=== PATIENT | male | born 1965 | race Caucasian/White ===

== ENCOUNTER 2018-12-21 13:34 | Emergency (ER) | payer OTHER ==
[2018-12-21 16:33] LABS: Urine Bacteria <20 /HPF (NONE SEEN); Urine Culture Reflex Order NOT NEEDED; Urine Mucus SLIGHT /HPF (NONE SEEN); Urine RBC <5 /HPF (NONE SEEN)
[2018-12-21] MEDS ORDERED: HYDROCODONE/APAP 5/325 MG TAB ONE (16:41)
[2018-12-21 19:04] LABS: Urine Blood NEGATIVE (NEG); Urine Glucose 2+ (NEG); Urine Protein NEGATIVE (NEG)
--- NOTE | 2018-12-21 19:51 | RAD REPORT ---
EXAM DESCRIPTION: CT - Head C Spine Cap Luz Elena Stone - 12/21/2018 7:14 pm CLINICAL HISTORY: Fall, head, neck, chest and abdomen, right-sided back flank, hematuria COMPARISON: None. TECHNIQUE: Axial [address] head images were obtained. Axial [address] cervical spine images were obtaine d with sagittal and coronal reconstruction images reviewed. During dynamic enhancement of 100mL non-i onic contrast, axial 5 mm images of the chest, abdomen and pelvis were obtained. All CT scans are performed using dose optimization technique as appropriate and may include automated exposure control or mA/KV adjustment according to patient size. FINDINGS: No intracranial hemorrhage, mass or edema. No midline shift or abnormal fluid collection. Mastoid air cells and paranasal sinuses are clear. No skull fracture. CT cervical spine imaging shows normal height. Normal alignment of the vertebrae. No significant disc space narrowing. Minimal endplate spurring changes are present. No paraspinal mass or hematoma seen. Central canal detail is inherently limited. Concerns for traumatic disc herniation or traumatic cord injury can be further addressed with MR imaging. Minimal lung base atelectasis present. No pneumothorax or pulmonary contusion. No mediastinal hematom a and the aorta and pulmonary arteries are unremarkable. No chest will mass or abnormal axillary find ing. No displaced rib fracture or other significant bony finding. No injury to the solid abdominal viscera. Specifically, no acute renal finding to explain hematuria. Patient has a 5 mm nonobstructing calculus in the lower pole of the right kidney. No urinary bladder abnormality. No prostate gland or seminal vesicle abnormality. Gallbladder and biliary tree are unrem arkable. No bowel injury or significant finding. No free air, free fluid or abnormal stranding. No vertebral body compression fracture. Lower lumbar degenerative changes are present including right -sided L5 pars defect. Disc bulge is present at L4-5 and L5-S1. IMPRESSION: No significant CT Head finding. No significant CT Cervical Spine finding. No significant CT Chest finding. No significant CT Abdomen and Pelvis finding. Nonacute findings are detailed in the body of the report.
--- NOTE | 2018-12-21 20:07 | ER ---
Nurse's Notes [facility] Name: Sharif Fregoso Age: 53 yrs Sex: Male : 1965 Arrival Date: 12/21/2018 Time: 13:40 Bed 17 Private MD: Diagnosis: Muscle spasm of back Presentation: 12/21 14:25 Presenting complaint: Patient states: I fell from standing on , I fell on my la1 back but on the right side. For the next four days after that I was peeing blood. I am also having back pain. I also feel I am constipated. Transition of care: patient was not received from another setting of care. Onset of symptoms was December 21, 2018. Risk Assessment: Do you want to hurt yourself or someone else? Patient reports no desire to harm self or others. Initial Sepsis Screen: Does the patient meet any 2 criteria? No. Patient's initial sepsis screen is negative. Does the patient have a suspected source of infection? No. Patient's initial sepsis screen is negative. Care prior to arrival: None. 14:25 Method Of Arrival: Ambulatory la1 14:25 Acuity: CAHTERINE 3 la1 Historical: - Allergies: 14:25 PENICILLINS; la1 - PMHx: 14:25 Diabetes - NIDDM; la1 - Immunization history:: Adult Immunizations up to date. - Social history:: Smoking status: Patient/guardian denies using tobacco, Patient/guardian denies using alcohol, street drugs, The patient lives alone, with family. - Ebola Screening: : No symptoms or risks identified at this time. - Family history:: not pertinent. Screenin:10 Abuse screen: Denies threats or abuse. Denies injuries from another. Nutritional sg screening: No deficits noted. Tuberculosis screening: No symptoms or risk factors identified. Never had TB. Fall Risk None identified. Assessment: 16:16 General: Appears in no apparent distress. well groomed, well developed, well nourished, sg Behavior is calm, cooperative, appropriate for age. Pain: Complains of pain in left mid back and right mid back Quality of pain is described as aching. Neuro: Level of Consciousness is awake, alert, obeys commands, Oriented to person, place, time, Dope Sprayer are equal bilaterally Moves all extremities. Full function Gait is steady, Speech is normal, Facial symmetry appears normal. Cardiovascular: Capillary refill is brisk in bilateral fingers Patient's skin is warm and dry. Chest pain is denied. Respiratory: Airway is patent Respiratory effort is even, unlabored, Respiratory pattern is regular, symmetrical. GI: Abdomen is round non-distended. : No signs and/or symptoms were reported regarding the genitourinary system. EENT: No signs and/or symptoms were reported regarding the EENT system. Derm: Skin is pink, warm \T\ dry. Musculoskeletal: Circulation, motion, and sensation intact. Range of motion: intact in all extremities, Swelling absent. 17:16 Reassessment: Patient appears in no apparent distress at this time. Patient and/or sg family updated on plan of care and expected duration. Pain level reassessed. Patient is alert, oriented x 3, equal unlabored respirations, skin warm/dry/pink. 18:16 Reassessment: Patient appears in no apparent distress at this time. Patient and/or sg family updated on plan of care and expected duration. Pain level reassessed. Patient is alert, oriented x 3, equal unlabored respirations, skin warm/dry/pink. Patient states symptoms have not improved. Reassessment: pt family at bedside. 19:49 General: Appears in no apparent distress. comfortable, well groomed, Behavior is calm, jd3 cooperative, appropriate for age. Pain: Complains of pain in back Quality of pain is described as aching. Neuro: Level of Consciousness is awake, alert, obeys commands, Oriented to person, place, time, situation. Cardiovascular: Denies chest pain, Capillary refill < 3 seconds Patient's skin is warm and dry. Respiratory: Airway is patent Respiratory effort is even, unlabored, Respiratory pattern is regular, symmetrical, Denies cough, shortness of breath. GI: Abdomen is round non-distended. : Reports discolored urine. EENT: No signs and/or symptoms were reported regarding the EENT system. Derm: Skin is intact, Skin is dry, Skin is normal, Skin temperature is warm. Musculoskeletal: Circulation, motion, and sensation intact. Range of motion: intact in all extremities. 20:13 Reassessment: Patient appears in no apparent distress at this time. Patient and/or jd3 family updated on plan of care and expected duration. Pain level reassessed. Patient is alert, oriented x 3, equal unlabored respirations, skin warm/dry/pink. reported understanding of discharge instructions. Vital Signs: 14:26 BP 120 / 86; Pulse 86; Resp 16; Temp 98.5; Pulse Ox 100% on R/A; la1 20:12 Pulse 85; Resp 16 S; Pulse Ox 100% on R/A; Pain 3/10; jd3 ED Course: 13:40 Patient arrived in ED. as 14:25 Arm band placed on left wrist. la1 14:26 Triage completed. la1 14:40 Patient has correct armband on for positive identification. Bed in low position. Call sg light in reach. Side rails up X2. Pulse ox on. NIBP on. Warm blanket given. Head of bed elevated. 15:55 Ben Olsen MD is Attending Physician. ma2 16:07 Urine collected: clean catch specimen, clear. 3 16:16 Scotty Martinez, RN is Primary Nurse. sg 17:33 Radiology exam delayed due to lab results not completed at this time. (BUN/Creatinine). sj 18:00 Initial lab(s) drawn, by ca, sent to lab. Inserted saline lock: 20 gauge in right dh3 antecubital area, using aseptic technique. Blood collected. 18:23 Radiology exam delayed due to lab results not completed at this time. (BUN/Creatinine). sj 18:39 Radiology exam delayed due to lab results not completed at this time. (BUN/Creatinine). sj 19:17 CT Traumagram (Head C Spine CAP W Con) In Process Unspecified. EDMS 20:12 No provider procedures requiring assistance completed. IV discontinued, intact, jd3 bleeding controlled, No redness/swelling at site. Pressure dressing applied. Administered Medications: 16:39 Drug: [place] 5 mg-325 mg 1 tabs Route: PO; sg 17:46 Follow up: Response: No adverse reaction sg 19:03 Not Given (Other Intervention Used): [place] 5 mg-325 mg 2 tabs PO once; RASS on ADMIN: sg Combtv4, Very Agttd3, Agttd2, Rstlss1, AlertClm0, Drwsy-1, Lt Sdtn-2, Mod Sdtn-3, Dp Sdtn-4, UnArsble-5 Outcome: 20:06 Discharge ordered by . ma2 20:12 Discharged to home ambulatory, with family. jd3 20:12 Condition: stable 20:12 Discharge instructions given to patient, family, Instructed on discharge instructions, follow up and referral plans. medication usage, Demonstrated understanding of instructions, follow-up care, medications, Prescriptions given X 2. 20:13 Patient left the ED. jd3 Signatures: Dispatcher [employer] EDMS Scotty Martinez RN RN sg Jones, Susan sj Martinez, Amelia as Attema, Lee RN RN vt1 [facility] Jordan Washburn RN RN jd3 Ben Olsen MD MD ma2
--- NOTE | 2018-12-21 20:07 | EDPHYS ---
Physician Documentation [facility] Name: Sharif Fregoso Age: 53 yrs Sex: Male : 1965 Arrival Date: 12/21/2018 Time: 13:40 Bed 17 Private MD: ED Physician Ben Olsen HPI: 12/21 16:41 This 53 yrs old Male presents to ER via Ambulatory with complaints of Urinary ma2 Problem, Back Pain. 16:41 The patient presents with pain that is acute. The symptoms are located in the low back, ma2 head. Onset: The symptoms/episode began/occurred suddenly, 4 day(s) ago. Associated signs and symptoms: Pertinent negatives: dysuria, hematuria, numbness. Severity of symptoms: At their worst the symptoms were moderate, in the emergency department the symptoms have improved. slipped abd fell hit his head and mid back has abd pain and neck pain and hematuria, he has constipation and flank pain . Historical: - Allergies: 14:25 PENICILLINS; la1 - PMHx: 14:25 Diabetes - NIDDM; la1 - Immunization history:: Adult Immunizations up to date. - Social history:: Smoking status: Patient/guardian denies using tobacco, Patient/guardian denies using alcohol, street drugs, The patient lives alone, with family. - Ebola Screening: : No symptoms or risks identified at this time. - Family history:: not pertinent. ROS: 16:41 Constitutional: Negative for fever, chills, and weight loss. ma2 16:41 All other systems are negative. Exam: 16:41 Constitutional: This is a well developed, well nourished patient who is awake, alert, ma2 and in no acute distress. Head/Face: Normocephalic, atraumatic. Eyes: Pupils equal round and reactive to light, extra-ocular motions intact. Lids and lashes normal. Conjunctiva and sclera are non-icteric and not injected. Cornea within normal limits. Periorbital areas with no swelling, redness, or edema. ENT: Nares patent. No nasal discharge, no septal abnormalities noted. Tympanic membranes are normal and external auditory canals are clear. Oropharynx with no redness, swelling, or masses, exudates, or evidence of obstruction, uvula midline. Mucous membranes moist. Chest/axilla: Normal chest wall appearance and motion. Nontender with no deformity. No lesions are appreciated. Cardiovascular: Regular rate and rhythm with a normal S1 and S2. No gallops, murmurs, or rubs. Normal PMI, no JVD. No pulse deficits. 16:41 Neck: C-spine: vertebral tenderness, that is mild, diffusely. 16:41 Abdomen/GI: Inspection: distension, Palpation: mild abdominal tenderness, in all quadrants. 16:44 Back: No spinal tenderness. No costovertebral tenderness. Full range of motion. ma2 Skin: Warm, dry with normal turgor. Normal color with no rashes, no lesions, and no evidence of cellulitis. MS/ Extremity: Pulses equal, no cyanosis. Neurovascular intact. Full, normal range of motion. Neuro: Awake and alert, GCS 15, oriented to person, place, time, and situation. Cranial nerves II-XII grossly intact. Motor strength 5/5 in all extremities. Sensory grossly intact. Cerebellar exam normal. Normal gait. Vital Signs: 14:26 BP 120 / 86; Pulse 86; Resp 16; Temp 98.5; Pulse Ox 100% on R/A; la1 20:12 Pulse 85; Resp 16 S; Pulse Ox 100% on R/A; Pain 3/10; jd3 MDM: 15:55 Patient medically screened. [facility] 16:44 Differential diagnosis: chronic back pain, Fatigue Obesity Scoliosis sprain, vertebral ma2 fracture. 20:05 Data reviewed: vital signs, nurses notes. Counseling: I had a detailed discussion with ma2 the patient and/or guardian regarding: the historical points, exam findings, and any diagnostic results supporting the discharge/admit diagnosis, the presence of at least one elevated blood pressure reading (>120/80) during this emergency department visit, the need for outpatient follow up. Response to treatment: the patient's symptoms have markedly improved after treatment. 12/21 15:05 Order name: Urine Culture [facility] 12/21 15:05 Order name: Urine Microscopic Only [facility] 12/21 16:08 Order name: Urine Dipstick--Ancillary (enter results); Complete Time: 20:05 ms 12/21 16:27 Order name: CT Traumagram (Head C Spine CAP W Con); Complete Time: 20:05 ma2 12/21 16:34 Order name: Urine Microscopic Only; Complete Time: 16:43 EDIA 12/21 17:48 Order name: Creatinine for Radiology; Complete Time: 20:05 sg 12/21 15:05 Order name: Urine Dipstick-Ancillary (obtain specimen); Complete Time: 16:07 snw 12/21 17:48 Order name: IV Start; Complete Time: 18:03 sg Administered Medications: 16:39 Drug: [place] 5 mg-325 mg 1 tabs Route: PO; sg 17:46 Follow up: Response: No adverse reaction sg 19:03 Not Given (Other Intervention Used): [place] 5 mg-325 mg 2 tabs PO once; RASS on ADMIN: sg Combtv4, Very Agttd3, Agttd2, Rstlss1, AlertClm0, Drwsy-1, Lt Sdtn-2, Mod Sdtn-3, Dp Sdtn-4, UnArsble-5 Disposition: 12/21/18 20:06 Discharged to Home. Impression: Muscle spasm of back. - Condition is Stable. - Prescriptions for Tylenol- Codeine #3 300-30 mg Oral Tablet - take 2 tablet by ORAL route every 6 hours As needed; 30 tablet. Tramadol 50 mg Oral Tablet - take 1 tablet by ORAL route every 8 hours as needed; 12 tablet. - Medication Reconciliation Form, Thank You Letter, Antibiotic Education, Prescription Opioid Use form. - Follow up: Private Physician; When: Tomorrow; Reason: Recheck today's complaints, Continuance of care. Signatures: Dispatcher [employer] [facility] Scotty Martinez RN RN sg Jade Faustin, BUNCH MAKER-C BUNCH MAKER-[employer] [place] RN RN laJordan Peterson RN RN jd3 Ben Olsen MD MD ma2 Corrections: (The following items were deleted from the chart) 20:13 20:06 12/21/2018 20:06 Discharged to Home. Impression: Muscle spasm of back. Condition jd3 is Stable. Prescriptions for Tylenol-Codeine #3 300-30 mg Oral Tablet - take 2 tablet by ORAL route every 6 hours As needed; 30 tablet, Tramadol 50 mg Oral Tablet - take 1 tablet by ORAL route every 8 hours as needed; 12 tablet. and Forms are Medication Reconciliation Form, Thank You Letter, Antibiotic Education, Prescription Opioid Use. Follow up: Private Physician; When: Tomorrow; Reason: Recheck today's complaints, Continuance of care. ma2
[2018-12-21 21:56] VITALS: BP 120/86; TEMP 98.5; O2SAT 100
== END 2018-12-21 20:13 | disposition home or self-care (01) ==
LOC: ER 13:34
DX: M62.830 Muscle spasm of back (principal); E11.9 Type 2 diabetes mellitus without complications; Z88.0 Allergy status to penicillin
CPT/HCPCS: 87088; 87086; 36415; 70450; 72125; 71260; 74177; 99284; Q9967; 81003; 81015

== ENCOUNTER 2019-01-13 07:50 | Day surgery (SDC) | payer OTHER ==
[2019-01-06 16:59] LABS: Absolute Lymphocytes (CBC) 1.8 K/uL (0.7-4.9); Basophils % 0.4 % (0-1.3); Hematocrit 40.8 % (39.6-49.0); Lymphocytes % 34.3 % (15.3-44.8); MPV 9.4 fL (7.6-11.3); RBC Red Blood Cell Count 4.58 M/uL (4.33-5.43)
[2019-01-06 17:04] LABS: Protime INR 0.88
[2019-01-13] MEDS ORDERED: CEFAZOLIN/SWI 1gm 0 GM/0 ML SYR ONE (08:34)
[2019-01-13] MEDS ORDERED: Ringers Lactate 0 ML IV ONE (08:34)
[2019-01-13] MEDS ORDERED: NA CHLORIDE 0.9% 1,000 ML ONE (08:35)
[2019-01-13] MEDS ORDERED: BUPIVACAINE 0.25% PF 10 ML VIAL ONE (10:10)
[2019-01-13] MEDS ORDERED: FENTANYL CITR 100 MCG/2 ML ONE (10:13)
[2019-01-13] MEDS ORDERED: MIDAZOLAM HCL 2 MG/2 ML INJ ONE (10:13)
[2019-01-13] MEDS ORDERED: PROPOFOL 200 MG/20 ML VIAL IV ONE (10:13)
[2019-01-13] MEDS ORDERED: LIDOCAINE 1% MPF 5 ML VIAL ONE (10:13)
[2019-01-13] MEDS ORDERED: CLINDAMYCIN INJ 600 MG in NA CHLORIDE 0.9% 50 ML IV ONE (10:15)
[2019-01-13] MEDS ORDERED: KETOROLAC 30 MG/ML INJ ONE (10:52)
[2019-01-13] MEDS ORDERED: ONDANSETRON 4 MG/2 ML VIAL ONE (10:52)
--- NOTE | 2019-01-13 11:17 | P.BOP ---
Preoperative diagnosis: right carpal tunnel syndrome Postoperative diagnosis: same Primary procedure: right open carpal tunnel release Equipment Maintenance Tech: NONE,NONE Estimated blood loss: <5 cc Specimen: none Findings: see dictation Anesthesia: General Complications: None Implants: none Fluids & blood products: per anesthesia record; TT: 18 mins @ 250 mmHg Transferred to: Recovery Room Condition: Good
[2019-01-13] MEDS ORDERED: NA CHLORIDE 0.9% 500 ML ONE (12:08)
[2019-01-13] MEDS ORDERED: HYDROCODONE/APAP 5/325 MG TAB ONE (12:34)
[2019-01-13 13:03] VITALS: BP 119/70; TEMP 97.5; O2SAT 94
--- NOTE | 2019-01-14 19:02 | OP ---
Date of Procedure: 01/13/2019 Surgeon: Maurisio Rose MD Preoperative Diagnosis: Right carpal tunnel syndrome. Postoperative Diagnosis: Right carpal tunnel syndrome. Procedure Performed: Right open carpal tunnel release. Anesthesia: General LMA. Fluids: Per Anesthesia record. Estimated Blood Loss: Less than 5 cc. Tourniquet Time: 18 minutes at 350 mmHg. Complications: None. Indication For Procedure: Sharif is a 53-year-old male presented to my clinic with signs, symptoms, and EMG findings consistent with right carpal tunnel syndrome. The patient has failed conservative t reatment. I discussed with the patient at length risks and benefits associated with operative and no noperative treatment. He expressed understanding and elected to proceed with operative treatment. Description Of Procedure: After informed consent was obtained, the patient was identified in the pre operative holding area. The right upper extremity was marked. The patient was then brought back to the operating room, transferred to the operating table in a supine fashion, and placed under general LMA anesthesia. The right upper extremity was prepped and draped in usual sterile fashion. A time-o ut was initiated. The correct patient and procedure were confirmed and identified. The patient then received his preoperative prophylactic antibiotics. The right upper extremity was exsanguinated. T ourniquet was inflated to 250 mmHg. Approximately 3 cm longitudinal incision was made just ulnar to the thenar crease. Dissection was taken down to the palmar fascia, which was identified. A [place] el evator was placed just deep to the palmar fascia to protect the median nerve. Release of the transve rse carpal ligament was then performed using a 15 blade protecting the median nerve at all times usin g the [place] elevator. After complete release of transverse carpal ligament in a distal proximal fash ion, any fascial bands remaining were released using blunt-tipped medications with the tips pointed s uperficially at all times to protect the median nerve. After complete release of transverse carpal l igament and fascial bands was performed, the wound was then irrigated thoroughly with normal saline. The skin was then approximated using a 5-0 Prolene. Sterile dressings were applied. Tourniquet was let down. Patient was awakened and transferred to PACU in stable condition. Postoperative Plan: He will follow up in my clinic in 1 week for wound check and suture removal. He will be nonweightbearing to the right upper extremity, but may begin working on range of motion exer cises. CV/MODL Voice ID: [id number] Report ID: [id number]
== END 2019-01-13 13:00 | disposition home or self-care (01) ==
LOC: OR 07:50
PROVIDERS: ATTEND Orthopaedic Surgery Sports Medicine
PROC: 01N50ZZ Release Median Nerve, Open Approach (ICD-10-PCS; principal; 2019-01-13 09:00)
DX: G56.01 Carpal tunnel syndrome, right upper limb (principal); M06.9 Rheumatoid arthritis, unspecified; E11.9 Type 2 diabetes mellitus without complications; F17.210 Nicotine dependence, cigarettes, uncomplicated; Z88.0 Allergy status to penicillin
CPT/HCPCS: 85025; 80048; 36415; 85610; 82947 ×2; 85730; 64721; J2704; J2250; J3010; J7040; J7030; J2405; J0690; J7120

== ENCOUNTER 2021-07-18 12:32 | Emergency (ER) | payer OTHER ==
[2021-07-18] MEDS ORDERED: ALPRAZOLAM 1 MG TABLET ONE (14:14)
[2021-07-18 14:33] LABS: Absolute Lymphocytes (CBC) 1.1 K/uL (0.7-4.9); Hematocrit 45.1 % (39.6-49.0); Lymphocytes % 14.1 % (15.3-44.8); MPV 9.3 fL (7.6-11.3); RBC Red Blood Cell Count 5.17 M/uL (4.33-5.43)
[2021-07-18 14:48] LABS: Potassium 4.2 mmol/L (3.5-5.1); Troponin High Sensitivity 7.8 pg/mL (<58.9)
--- NOTE | 2021-07-18 14:51 | RAD REPORT ---
EXAM DESCRIPTION: CT - Head Brain Wo Cont - 07/18/2021 2:26 pm CLINICAL HISTORY: Memory loss/vision loss COMPARISON: None TECHNIQUE: Computed axial tomography of the head was obtained. IV contrast was not requested. All CT scans are performed using dose optimization technique as appropriate and may include automated exposure control or mA/KV adjustment according to patient size. FINDINGS: An intracranial bleed is not seen . The ventricles are normal in caliber. No extra-axial fluid collection is noted. No significant hypodense lesion within the brain. Moderate to marked opacification right mastoid sinus IMPRESSION: No acute intracranial abnormality is seen. Moderate to marked opacification right mastoid probably mastoiditis
--- NOTE | 2021-07-18 15:24 | RAD REPORT ---
EXAM DESCRIPTION: Domonique Single View07/18/2021 2:15 pm CLINICAL HISTORY: Palpitations COMPARISON: none FINDINGS: The lungs appear clear of acute infiltrate. The heart is normal size IMPRESSION: No acute abnormalities displayed
[2021-07-18] MEDS ORDERED: INSULIN -REGULAR HUMAN 50 UNIT/0.5 ML ML ONE (16:51)
--- NOTE | 2021-07-18 18:24 | RAD REPORT ---
EXAM DESCRIPTION: MRI - Brain W/Wo Cont - 07/18/2021 5:54 pm CLINICAL HISTORY: memory loss, loss of vision COMPARISON: Head Brain Wo Cont dated 07/18/2021 TECHNIQUE: Sagittal T1-weighted images were obtained along with PD/heavily T2-weighted and T2-FLAIR images. Axial DWI and ADC mapping sequences were also obtained along with coronal heavily T2-weighted images were obtained. Post contrast enhanced images were obtained. FINDINGS: No intracranial hemorrhage, mass or acute infarction. No edema or shift of midline structu res. No extra-axial fluid collections. Signal voids are seen as a normal finding in the major intracr anial vessels. No significant white matter disease. Right mastoid effusion is identified. Enhancement and thickening at the external ear canal. No absces s identified. No evidence of dural venous sinus thrombosis or abnormal signal in the middle cranial f denis. IMPRESSION: Right-sided mastoid effusion consistent with acute mastoiditis. No abscess or other comp licating features identified. The external ear canal is thickened and enhancing which may reflect a c ellulitis.
[2021-07-18] MEDS ORDERED: METOPROLOL TAR 25 MG TAB ONE (18:42)
--- NOTE | 2021-07-18 20:06 | ER ---
Nurse's Notes [facility] Name: Sharif Fregoso Age: 55 yrs Sex: Male : 1965 Arrival Date: 07/18/2021 Time: 12:36 Bed 16 Private MD: Jose Antonio Trinh Diagnosis: Acute mastoiditis Presentation: 07/18 12:38 Chief complaint: Patient states: "I think my is putting something in my drink. She ss has done it before, like throwing out my insulin and things like that. I slept all day yesterday, I feel tired again today, I'm shaky and I'm having a hear time remembering things.". Coronavirus screen: Client denies travel out of the [place] in the last 14 days. Ebola Screen: Patient denies exposure to infectious person. Patient denies travel to an Ebola-affected area in the 21 days before illness onset. Initial Sepsis Screen: Does the patient meet any 2 criteria? No. Patient's initial sepsis screen is negative. Does the patient have a suspected source of infection? No. Patient's initial sepsis screen is negative. Risk Assessment: Do you want to hurt yourself or someone else? Patient reports no desire to harm self or others. Note Pt reports that these symptoms began about 2 weeks ago, but getting worse yesterday. Onset of symptoms was July 04, 2021. 12:38 Method Of Arrival: Ambulatory 12:38 Acuity: CATHERINE 2 ss Historical: - Allergies: 12:40 PENICILLINS; ss - PMHx: 12:40 Diabetes - NIDDM; ss - PSHx: 12:40 None; ss - Immunization history:: Client reports receiving the 2nd dose of the Covid vaccine. - Social history:: Smoking status: Patient reports the use of cigarette tobacco products, denies chronic smoking, but will smoke occasionally, Patient uses alcohol, occasionally. Screenin:44 Abuse screen: Denies threats or abuse. Denies injuries from another. Nutritional ph screening: No deficits noted. Tuberculosis screening: No symptoms or risk factors identified. Fall Risk None identified. Assessment: 14:00 General: Appears in no apparent distress. comfortable, well groomed, Behavior is ph cooperative, appropriate for age, anxious. Pain: Complains of pain in right ear. Neuro: Level of Consciousness is awake, alert, obeys commands, Oriented to person, place, time, situation. 14:00 Cardiovascular: Capillary refill < 3 seconds in bilateral fingers Patient's skin is ph warm and dry. Respiratory: Airway is patent Respiratory effort is even, unlabored. GI: No signs and/or symptoms were reported involving the gastrointestinal system. EENT: Reports blurred vision decreased hearing in right ear pain in right ear. Derm: Skin is intact, is healthy with good turgor, Skin is pink, warm \\T\\ dry. Musculoskeletal: Circulation, motion, and sensation intact. Range of motion: intact in all extremities. 17:20 Reassessment: Patient appears in no apparent distress at this time. Patient and/or ph family updated on plan of care and expected duration. Pain level reassessed. Patient is alert, oriented x 3, equal unlabored respirations, skin warm/dry/pink. Pt taken for MRI via wheelchair. 18:23 Reassessment: Patient appears in no apparent distress at this time. Patient and/or ph family updated on plan of care and expected duration. Pain level reassessed. Patient is alert, oriented x 3, equal unlabored respirations, skin warm/dry/pink. Patient states symptoms have improved. 19:30 Reassessment: Patient appears in no apparent distress at this time. Patient is alert, lp1 oriented x 3, equal unlabored respirations, skin warm/dry/pink. Patient demonstrates readiness for discharge. 19:50 Reassessment: Dr. Morgan at bedside to discuss plan of care with patient and follow-up.lp1 Vital Signs: 12:38 Resp 20; Weight 90.72 kg; Height 5 ft. 9 in. (175.26 cm); Pain 0/10; ss 12:42 BP 167 / 100; Pulse 126; Pulse Ox 98% on R/A; ss 13:45 BP 155 / 100; Pulse 111; Resp 16; Pulse Ox 99% on R/A; ph 14:43 BP 152 / 93; Pulse 108; Resp 18; Pulse Ox 95% on R/A; ph 16:36 BP 142 / 91; Pulse 110; Resp 18; Pulse Ox 100% on R/A; ph 17:20 BP 147 / 101; Pulse 110; Resp 16; Pulse Ox 98% on R/A; ph 18:13 Pulse 102; Resp 18; Pulse Ox 98% on R/A; ph 19:20 BP 136 / 95; Pulse 102; Resp 18; Pulse Ox 98% on R/A; ph 20:30 BP 118 / 88; Pulse 65; Resp 15; Pulse Ox 100% on R/A; Pain 0/10; lp1 12:38 Body Mass Index 29.53 (90.72 kg, 175.26 cm) ED Course: 12:36 Patient arrived in ED. mr 12:36 Jose Antonio Trinh MD is Private Physician. mr 12:39 Steven Morgan MD is Attending Physician. kdr 12:40 Triage completed. ss 12:40 Arm band placed on right wrist. ss 13:03 Neelima Otero, GORDON is Primary Nurse. ph 14:09 Patient has correct armband on for positive identification. Bed in low position. Call [facility] light in reach. Side rails up X 1. Warm blanket given. quality assurance monitor on. Pulse ox on. NIBP on. 14:09 Basic Metabolic Panel Sent. 5 14:09 CBC with Diff Sent. 5 14:09 Troponin HS Sent. 5 14:17 XRAY Chest (1 view) In Process Unspecified. EDMS 14:22 Initial lab(s) drawn, by oh, sent to lab. Inserted saline lock: 22 gauge in left [facility] antecubital area, using aseptic technique. Blood collected. 14:27 Head Brain Wo Cont In Process Unspecified. EDMS 15:52 Diet: Patient given snack. mh5 17:55 Brain W/Wo Cont In Process Unspecified. EDMS 19:20 No provider procedures requiring assistance completed. ph 20:04 Rose Pacheco MD is Referral Physician. kdr 20:54 IV discontinued, No redness/swelling at site. Pressure dressing applied. lp1 Administered Medications: 14:24 Drug: XANax (alprazolam) Tablet 1 mg Route: PO; ph 18:13 Follow up: Response: No adverse reaction ph 18:13 Not Given (Other Intervention Used): Insulin Regular Human 8 units IVP once ph 19:17 Drug: Lopressor (metoprolol TARTRATE)) 25 mg Route: PO; ph 19:21 Follow up: Response: No adverse reaction ph 20:28 Drug: predniSONE 60 mg Route: PO; lp1 20:53 Follow up: Response: No adverse reaction lp1 20:29 Drug: Rocephin - (cefTRIAXone) 1 grams Route: IVPB; Infused Over: 30 mins; Site: left lp1 antecubital; 20:53 Follow up: IV Status: Completed infusion; IV Intake: 50ml 1 20:29 Drug: Benadryl (diphenhydrAMINE) 50 mg Route: PO; lp1 20:53 Follow up: Response: No adverse reaction lp1 Intake: 20:53 IV: 50ml; Total: 50ml. 1 Outcome: 20:05 Discharge ordered by . kdr 20:54 Discharged to home ambulatory. 1 20:54 Condition: good 20:54 Discharge instructions given to patient, Instructed on discharge instructions, follow up and referral plans. Demonstrated understanding of instructions, follow-up care. 20:54 Patient left the ED. 1 Signatures: Dispatcher [employer] EDMS Steven Morgan MD MD [facility] Poon, Fiona mr MurphyKira guevara, RN GORDON Raegan Marion RN RN [facility] Neelima Otero RN RN [facility] Corrections: (The following items were deleted from the chart) 12:42 12:38 Acuity: CATHERINE 3 ss ss
--- NOTE | 2021-07-18 20:06 | EDPHYS ---
Physician Documentation [facility] Name: Sharif Fregoso Age: 55 yrs Sex: Male : 1965 Arrival Date: 07/18/2021 Time: 12:36 Bed 16 Private MD: Jose Antonio Trinh ED Physician Steven Morgan HPI: 07/18 18:10 This 55 yrs old Male presents to ER via Ambulatory with complaints of Memory Loss, kdr Vision Problem. 18:10 Patient states that he is concerned that his is putting something in his food kdr and/or that she is making attempts to alter or did alter his medications. He states that she has thrown out his insulin before and that after taking some of the medications he slept for a day or more. Today he is feeling tired again and shaky and is having a hard time remembering things. He states his occasionally disappears for more than a month and then returns. He has little flight of thoughts about many issues both current and past. Specifically with with relationship to his .. 18:10 The patient presents with agitation, confusion, decreased responsiveness, kdr disorientation, trouble concentrating, Blurry vision. Onset: The symptoms/episode began/occurred at an unknown time. Possible causes: drug use, alcohol, low blood sugar, Exposure to mind altering substances. Associated signs and symptoms: The patient has no apparent associated signs or symptoms. Current symptoms: In the emergency department the patient's symptoms are unchanged from the initial presentation. Patient's baseline: Neuro: alert and fully oriented, Motor: no deficits. The patient has not experienced similar symptoms in the past. The patient has not recently seen a physician. Historical: - Allergies: 12:40 PENICILLINS; ss - PMHx: 12:40 Diabetes - NIDDM; ss - PSHx: 12:40 None; ss - Immunization history:: Client reports receiving the 2nd dose of the Covid vaccine. - Social history:: Smoking status: Patient reports the use of cigarette tobacco products, denies chronic smoking, but will smoke occasionally, Patient uses alcohol, occasionally. ROS: 18:10 Constitutional: Negative for fever, chills, and weight loss, Eyes: Negative for injury, kdr pain, redness, and discharge, ENT: Negative for injury, pain, and discharge, Neck: Negative for injury, pain, and swelling, Cardiovascular: Negative for chest pain, palpitations, and edema, Respiratory: Negative for shortness of breath, cough, wheezing, and pleuritic chest pain, Abdomen/GI: Negative for abdominal pain, nausea, vomiting, diarrhea, and constipation, Back: Negative for injury and pain, : Negative for injury, bleeding, discharge, and swelling, MS/Extremity: Negative for injury and deformity, Skin: Negative for injury, rash, and discoloration, Psych: Negative for depression, anxiety, suicide ideation, homicidal ideation, and hallucinations, Allergy/Immunology: Negative for hives, rash, and allergies, Endocrine: Negative for neck swelling, polydipsia, polyuria, polyphagia, and marked weight changes, Hematologic/Lymphatic: Negative for swollen nodes, abnormal bleeding, and unusual bruising. 18:15 Neuro: Positive for altered mental status, weakness, Negative for loss of kdr consciousness, numbness, seizure activity, speech changes, syncope, near syncope, tingling, tinnitus, tremor, visual changes. Exam: 14:13 ECG was reviewed by the Attending Physician. kdr 18:15 Constitutional: This is a well developed, well nourished patient who is awake, alert, kdr and in no acute distress. Head/Face: Normocephalic, atraumatic. Eyes: Pupils equal round and reactive to light, extra-ocular motions intact. Lids and lashes normal. Conjunctiva and sclera are non-icteric and not injected. Cornea within normal limits. Periorbital areas with no swelling, redness, or edema. Neck: Trachea midline, no thyromegaly or masses palpated, and no cervical lymphadenopathy. Supple, full range of motion without nuchal rigidity, or vertebral point tenderness. No Meningismus. Chest/axilla: Normal chest wall appearance and motion. Nontender with no deformity. No lesions are appreciated. Cardiovascular: Regular rate and rhythm with a normal S1 and S2. No gallops, murmurs, or rubs. Normal PMI, no JVD. No pulse deficits. Respiratory: Lungs have equal breath sounds bilaterally, clear to auscultation and percussion. No rales, rhonchi or wheezes noted. No increased work of breathing, no retractions or nasal flaring. Abdomen/GI: Soft, non-tender, with normal bowel sounds. No distension or tympany. No guarding or rebound. No evidence of tenderness throughout. Back: No spinal tenderness. No costovertebral tenderness. Full range of motion. Skin: Warm, dry with normal turgor. Normal color with no rashes, no lesions, and no evidence of cellulitis. MS/ Extremity: Pulses equal, no cyanosis. Neurovascular intact. Full, normal range of motion. Neuro: Awake and alert, GCS 15, oriented to person, place, time, and situation. Cranial nerves II-XII grossly intact. Motor strength 5/5 in all extremities. Sensory grossly intact. Cerebellar exam normal. Normal gait. 18:15 Psych: Behavior/mood is cooperative, anxious, inappropriate for age, Affect is animated, Oriented to person, place, time, Patient has no thoughts/intents to harm self or others. Judgement / Insight is impaired. Memory is normal. Delusions/hallucinations are not present. Vital Signs: 12:38 Resp 20; Weight 90.72 kg; Height 5 ft. 9 in. (175.26 cm); Pain 0/10; ss 12:42 BP 167 / 100; Pulse 126; Pulse Ox 98% on R/A; ss 13:45 BP 155 / 100; Pulse 111; Resp 16; Pulse Ox 99% on R/A; ph 14:43 BP 152 / 93; Pulse 108; Resp 18; Pulse Ox 95% on R/A; ph 16:36 BP 142 / 91; Pulse 110; Resp 18; Pulse Ox 100% on R/A; ph 17:20 BP 147 / 101; Pulse 110; Resp 16; Pulse Ox 98% on R/A; ph 18:13 Pulse 102; Resp 18; Pulse Ox 98% on R/A; ph 19:20 BP 136 / 95; Pulse 102; Resp 18; Pulse Ox 98% on R/A; ph 20:30 BP 118 / 88; Pulse 65; Resp 15; Pulse Ox 100% on R/A; Pain 0/10; lp1 12:38 Body Mass Index 29.53 (90.72 kg, 175.26 cm) ss MDM: 18:15 Data reviewed: vital signs, nurses notes, lab test result(s), radiologic studies. kdr Counseling: I had a detailed discussion with the patient and/or guardian regarding: the historical points, exam findings, and any diagnostic results supporting the discharge/admit diagnosis, lab results, radiology results, the need for outpatient follow up. 20:05 Patient medically screened. [facility] 07/18 12:55 Order name: Glucose, Ancillary Testing; Complete Time: 15:15 EDMS 07/18 13:42 Order name: Basic Metabolic Panel; Complete Time: 15:15 [facility] 07/18 13:42 Order name: CBC with Diff; Complete Time: 15:15 [facility] 07/18 13:42 Order name: Troponin HS; Complete Time: 15:15 [facility] 07/18 13:42 Order name: XRAY Chest (1 view); Complete Time: 16:12 [facility] 07/18 18:18 Order name: Glucose, Ancillary Testing; Complete Time: 19:18 EDMS 07/18 14:15 Order name: Head Brain Wo Cont; Complete Time: 15:15 EDMS 07/18 14:15 Order name: Brain W/Wo Cont; Complete Time: 19:18 EDMS 07/18 13:42 Order name: EKG; Complete Time: 13:43 [facility] 07/18 13:42 Order name: Cardiac monitoring; Complete Time: 14:08 [facility] 07/18 13:42 Order name: EKG - Nurse/Tech; Complete Time: 14:08 [facility] 07/18 13:42 Order name: IV Saline Lock; Complete Time: 14:09 [facility] 07/18 13:42 Order name: Labs collected and sent; Complete Time: 14:24 [facility] 07/18 13:42 Order name: O2 Per Protocol; Complete Time: 13:44 [facility] 07/18 13:42 Order name: O2 Sat Monitoring; Complete Time: 13:44 kdr EC:13 Rate is 104 beats/min. Rhythm is regular, Sinus tachycardia with No ectopy. QRS Cl[place] is kdr Normal. CO interval is normal. QRS interval is normal. QT interval is normal. Clinical impression: NSR w/ Non-specific ST/T Changes and Sinus tachycardia. Administered Medications: 14:24 Drug: XANax (alprazolam) Tablet 1 mg Route: PO; ph 18:13 Follow up: Response: No adverse reaction ph 18:13 Not Given (Other Intervention Used): Insulin Regular Human 8 units IVP once ph 19:17 Drug: Lopressor (metoprolol TARTRATE)) 25 mg Route: PO; ph 19:21 Follow up: Response: No adverse reaction ph 20:28 Drug: predniSONE 60 mg Route: PO; lp1 20:53 Follow up: Response: No adverse reaction lp1 20:29 Drug: Rocephin - (cefTRIAXone) 1 grams Route: IVPB; Infused Over: 30 mins; Site: left lp1 antecubital; 20:53 Follow up: IV Status: Completed infusion; IV Intake: 50ml lp1 20:29 Drug: Benadryl (diphenhydrAMINE) 50 mg Route: PO; lp1 20:53 Follow up: Response: No adverse reaction lp1 Disposition Summary: 07/18/21 20:05 Discharge Ordered Location: Home kdr Problem: new kdr Symptoms: have improved kdr Condition: Stable kdr Diagnosis - Acute mastoiditis kdr Followup: kdr - With: Rose Pacheco MD - When: Tomorrow - Reason: If symptoms return, Further diagnostic work-up, Recheck today's complaints, Continuance of care, Re-evaluation by your physician Discharge Instructions: - Discharge Summary Sheet kdr - Mastoiditis, Pediatric kdr Forms: - Medication Reconciliation Form kdr - Thank You Letter kdr Signatures: Dispatcher [employer] EDMS Steven Morgan MD MD kdr Kira Brown RN RN Raegan Marion RN RN [facility] Neelima Otero RN RN ph Corrections: (The following items were deleted from the chart) 18:16 18:10 Constitutional: Negative for fever, chills, and weight loss, Eyes: Negative for kdr injury, pain, redness, and discharge, ENT: Negative for injury, pain, and discharge, Neck: Negative for injury, pain, and swelling, Cardiovascular: Negative for chest pain, palpitations, and edema, Respiratory: Negative for shortness of breath, cough, wheezing, and pleuritic chest pain, Abdomen/GI: Negative for abdominal pain, nausea, vomiting, diarrhea, and constipation, Back: Negative for injury and pain, : Negative for injury, bleeding, discharge, and swelling, kdr
[2021-07-18] MEDS ORDERED: CEFTRIAXONE 1000 MG/VIAL ONE (20:22)
[2021-07-18] MEDS ORDERED: NA CHLORIDE 0.9% 50 ML ONE (20:22)
[2021-07-18] MEDS ORDERED: DIPHENHYDRAMINE 25 MG TAB/CAP ONE (20:22)
[2021-07-18] MEDS ORDERED: predniSONE 20 MG TAB ONE (20:22)
[2021-07-18 21:29] VITALS: O2SAT 98
[2021-07-18 21:31] VITALS: BP 136/95
== END 2021-07-18 20:54 | disposition home or self-care (01) ==
LOC: ER 12:32
DX: H70.009 Acute mastoiditis without complications, unspecified ear (principal); E11.9 Type 2 diabetes mellitus without complications; F17.210 Nicotine dependence, cigarettes, uncomplicated; Z88.0 Allergy status to penicillin
CPT/HCPCS: 85025; 80048; 36415; 82947 ×2; 84484; 70450; 71045; 70553; A9577; J1815; J7512

== ENCOUNTER 2023-08-21 11:10 | Emergency (ER) | payer OTHER ==
--- OUTSIDE RECORDS SUMMARY | 2023-08-21 11:13 | XMS REPORT | Continuity of Care Document ---
Author Name Unknown Address [address] [place] [address] [place] [address] thconnect Address [address] [place] [address] 1 [address] [place] [address] Care Team Providers Care Encephalographer Name Role Phone LEONOR Attending Clinician Unavailable TARAS Attending Clinician Unavaila kika GALVEZ Admitting Clinician Unavailable TARAS Admitting Clinician Unavaila kika Payers Payer Name Policy Type Policy Number Effective Date Expirati on Date Source [place]IC[place] FORMERLY [facility] [id number] 2018 00:00:00 [facility] [id number] MEDICARE [place]: [place] [id number] [facility] [id number] Problems Condition Name Condition Details Condition Category Status Onset Date Resolution Date Last Treatment Date Treating Clinician Comments Source Paranoid character Paranoid Character Problem Active 2021-03 00:00: 00 [facility] Personal relationsh ip breakdown Personal Relationsh ip Breakdown Problem Active 11-28 00:00: 00 [facility] Chronic post-traum atic stress disorder Chronic Post-traum atic Stress Disorder Problem Active 09-20 00:00: 00 [facility] Medications Ordered Medication Name Filled Medication Name Start Date Stop Date Current Medication? Ordering Clinician Indication Dosage Frequency Signature (SIG) Comments Components Source BD Kelly 2nd Gen Pen Needle 32 gauge x 5/32" BD Kelly 2nd Gen Pen Needle 32 gauge x 5/32" No BD Kelly 2nd Gen Pen Needle 32 gauge x 5/32" [facility] dextroamphe tamine-amph etamine 10 mg tablet TAKE 2 TABLETS BY MOUTH EVERY MORNING THEN TAKE 1 TABLET BY MOUTH AT LUNCH dextroamphe tamine-amph etamine 10 mg tablet TAKE 2 TABLETS BY MOUTH EVERY MORNING THEN TAKE 1 TABLET BY MOUTH AT LUNCH No dextroamph etamine-am phetamine 10 mg tablet TAKE 2 TABLETS BY MOUTH EVERY MORNING THEN TAKE 1 TABLET BY MOUTH AT LUNCH [facility] Program ergocalcife rol (vitamin D2) 1,250 mcg (50,000 unit) capsule ergocalcife rol (vitamin D2) 1,250 mcg (50,000 unit) capsule No ergocalcif rl (vitamin D2) 1,250 mcg (50,000 unit) capsule [facility] FreeStyle Calista 2 Sensor kit FreeStyle Calista 2 Sensor kit No FreeStyle Calista 2 Sensor kit [facility] icosapent ethyl 1 gram capsule icosapent ethyl 1 gram capsule No icosapent ethyl 1 gram capsule [facility] prazosin 1 mg capsule Take 1 capsule every day by oral route at bedtime for 30 days. prazosin 1 mg capsule Take 1 capsule every day by oral route at bedtime for 30 days. No 1capsul e(s) Q1D prazosin 1 mg capsule Take 1 capsule every day by oral route at bedtime for 30 days. [facility] tadalafil 5 mg tablet tadalafil 5 mg tablet No tadalafil 5 mg tablet [facility] temazepam 15 mg capsule Take 1 capsule every day by oral route at bedtime for 30 days. temazepam 15 mg capsule Take 1 capsule every day by oral route at bedtime for 30 days. No 1capsul e(s) Q1D temazepam 15 mg capsule Take 1 capsule every day by oral route at bedtime for 30 days. [facility] testosteron e cypionate 200 mg/mL intramuscul ar oil INJECT 0.75ML IN THE MUSCLE ONCE WEEKLY testosteron e cypionate 200 mg/mL intramuscul ar oil INJECT 0.75ML IN THE MUSCLE ONCE WEEKLY No testostero ne cypionate 200 mg/mL intramuscu lar oil INJECT 0.75ML IN THE MUSCLE ONCE WEEKLY [facility] Farxiga 10 mg tablet Farxiga 10 mg tablet No Farxiga 10 mg tablet [facility] methylpredn isolone 4 mg tablets in a dose pack methylpredn isolone 4 mg tablets in a dose pack No methylpred nisolone 4 mg tablets in a dose pack [facility] BD Luer-New Syringe 3 mL 22 x 1 1/2" BD Luer-New Syringe 3 mL 22 x 1 1/2" No BD Luer-New Syringe 3 mL 22 x 1 1/2" [facility] atorvastati n 20 mg tablet TAKE 1 TABLET BY MOUTH EVERY DAY atorvastati n 20 mg tablet TAKE 1 TABLET BY MOUTH EVERY DAY No atorvastat in 20 mg tablet TAKE 1 TABLET BY MOUTH EVERY DAY [facility] fenofibrate nanocrystal lized 145 mg tablet TAKE 1 TABLET BY MOUTH EVERY DAY fenofibrate nanocrystal lized 145 mg tablet TAKE 1 TABLET BY MOUTH EVERY DAY No fenofibrat e nanocrysta llized 145 mg tablet TAKE 1 TABLET BY MOUTH EVERY DAY [facility] Tresiba FlexTouch U-100 insulin 100 unit/mL (3 mL) subcutaneou s pen INJECT 16 UNITS UNDER THE SKIN EVERY DAY Tresiba FlexTouch U-100 insulin 100 unit/mL (3 mL) subcutaneou s pen INJECT 16 UNITS UNDER THE SKIN EVERY DAY No Tresiba FlexTouch U-100 insulin 100 unit/mL (3 mL) subcutaneo us pen INJECT 16 UNITS UNDER THE SKIN EVERY DAY [facility] azelastine 137 mcg (0.1 %) nasal spray aerosol azelastine 137 mcg (0.1 %) nasal spray aerosol No azelastine 137 mcg (0.1 %) nasal spray aerosol [facility] fluticasone propionate 50 mcg/actuati on nasal spray,suspe nsion USE 2 SPRAYS IN EACH NOSTRIL DAILY fluticasone propionate 50 mcg/actuati on nasal spray,suspe nsion USE 2 SPRAYS IN EACH NOSTRIL DAILY No fluticason e propionate 50 mcg/actuat ion nasal spray,susp ension USE 2 SPRAYS IN EACH NOSTRIL DAILY [facility] BD Luer-New Syringe 3 mL 23 gauge x 1 1/2" BD Luer-New Syringe 3 mL 23 gauge x 1 1/2" No BD Luer-New Syringe 3 mL 23 gauge x 1 1/2" [facility] FreeStyle Calista 3 Sensor device USE EVERY 14 DAYS FreeStyle Calista 3 Sensor device USE EVERY 14 DAYS No FreeStyle Calista 3 Sensor device USE EVERY 14 DAYS [facility] Xanax 0.25 mg tablet Take 1 tablet every day by oral route as directed for 30 days. Xanax 0.25 mg tablet Take 1 tablet every day by oral route as directed for 30 days. No 1 Q1D Xanax 0.25 mg tablet Take 1 tablet every day by oral route as directed for 30 days. [facility] Immunizations Ordered Immunization Name Filled Immunization Name Date Status Comments Source COVID-19, mRNA, LNP-S, PF, 30 mcg/0.3 mL dose (Pfizer-BioNTech) - ML COVID-19, mRNA, LNP-S, PF, 30 mcg/0.3 mL dose (Pfizer-BioNTech) - ML Unknown Completed [facility] Vital Signs Vital Name Observation Time Observation Value Comments S ource Body Weight 2023-08-05 00:00:00 201 [lb_av] [facility] BP Diastolic 2023-08-05 00:00:00 74 mm[Hg] [facility] BP Systolic 2023-08-05 00:00:00 156 mm[Hg] [facility] Body Weight 2023-06-03 00:00:00 200 [lb_av] [facility] BP Diastolic 2023-06-03 00:00:00 75 mm[Hg] [facility] BP Systolic 2023-06-03 00:00:00 153 mm[Hg] [facility] BP Diastolic 2022-08-15 00:00:00 79 mm[Hg] Ken gardnerrda [facility] BP Systolic 2022-08-15 00:00:00 159 mm[Hg] Dilip perea [facility] Body Weight 2022-08-15 00:00:00 207 [lb_av] Ken joshi [facility] BP Diastolic 2022-06-27 00:00:00 84 mm[Hg] Ken olzadaa [facility] BP Systolic 2022-06-27 00:00:00 167 mm[Hg] Dilip perea [facility] Body Weight 2022-06-27 00:00:00 202 [lb_av] Ken joshi [facility] Encounters Start Date/Time End Date/Time Encounter Type Admission Type Attending [facility] Care Facility Care Department Encounter ID Source 2023-08-05 00:00:00 2023-08-05 00:00:00 Kiel Rodriguez MD: [place] [address] , Ph. [phone]--[phone] [facility] [id number] [facility] 2023-06-03 00:00:00 2023-06-03 00:00:00 Kiel Rodriguez MD: [address] [address] , Ph. [phone]--[phone] [facility] [place] [facility] [id number] [facility] 2023-05-26 00:00:00 2023-05-26 00:00:00 Outpatient SAGLIME_JOH N [facility] [id number] [facility] 2022-10-15 00:00:00 2022-10-15 00:00:00 Outpatient SAGLIME_JOH N [facility] [id number] [facility] 2022-10-15 00:00:00 2022-10-15 00:00:00 Kiel Rodriguez MD: [address] [place] [address] , Ph. [phone]--2007 [facility] [id number] [facility] 2022-09-13 00:00:00 2022-09-13 00:00:00 SHAHRIAR JohnsYD: [address] [place] [address] , Ph. [phone]--2007 [facility] [place] [facility] [id number] [facility] 2022-09-08 00:00:00 2022-09-08 00:00:00 Outpatient SAGLIME_JOH N [facility] [id number] [facility] 2022-09-08 00:00:00 2022-09-08 00:00:00 Outpatient SAGLIME_JOH N [facility] [id number] [facility] 2022-09-07 00:00:00 2022-09-07 00:00:00 Outpatient SAGLIME_JOH N [facility] [id number] [facility] 2022-09-05 00:00:00 2022-09-05 00:00:00 Outpatient SAGLIME_JOH N [facility] [id number] [facility] 2022-09-05 00:00:00 2022-09-05 00:00:00 Santana Amador PSYD: [address] [place] [address] , Ph. [phone]--2007 [facility] [place] [facility] [id number] [facility] 2022-09-02 00:00:00 2022-09-02 00:00:00 Outpatient SAGLIME_JOH N [facility] [id number] [facility] 2022-08-19 00:00:00 2022-08-19 00:00:00 Outpatient SAGLIME_JOH N [facility] [id number] [facility] 2022-08-19 00:00:00 2022-08-19 00:00:00 Outpatient SAGLIME_JOH N [facility] [id number] [facility] 2022-08-15 00:00:00 2022-08-15 00:00:00 Outpatient SAGLIME_JOH N [facility] [id number] [facility] 2022-08-15 00:00:00 2022-08-15 00:00:00 Kiel Rodriguez MD: [address] [place] [address] , Ph. [phone]--[phone] [id number] [facility] 2022-08-14 00:00:00 2022-08-14 00:00:00 SHAHRIAR JohnsYD: [address] [place] [address] , Ph. [phone]--2007 [facility] [id number] [facility] 2022-07-31 00:00:00 2022-07-31 00:00:00 Santana Amador PSYD: [address] [place] [address] , Ph. [phone]--[phone] [facility] [id number] [facility] 2022-07-20 00:00:00 2022-07-20 00:00:00 Outpatient SAGLIME_JOH N [facility] [id number] [facility] 2022-07-20 00:00:00 2022-07-20 00:00:00 Outpatient SAGLIME_JOH N [facility] [id number] [facility] 2022-07-20 00:00:00 2022-07-20 00:00:00 Outpatient SAGLIME_JOH N [facility] [id number] [facility] 2022-07-20 00:00:00 2022-07-20 00:00:00 Outpatient SAGLIME_JOH N [facility] [id number] [facility] 2022-07-20 00:00:00 2022-07-20 00:00:00 Outpatient SAGLIME_JOH N [facility] [id number] [facility] 2022-06-27 00:00:00 2022-06-27 00:00:00 Kiel Rodriguez MD: [address] [place] [address] , Ph. [phone]--[phone] [facility] [id number] [facility] 2022-06-03 00:00:00 2022-06-03 00:00:00 Outpatient SAGLIME_JOH N [facility] [id number] [facility] 2022-06-03 00:00:00 2022-06-03 00:00:00 Outpatient SAGLIME_JOH N [facility] [id number] [facility] 2022-06-03 00:00:00 2022-06-03 00:00:00 Outpatient SAGLIME_JOH N [facility] [id number] [facility] 2022-06-03 00:00:00 2022-06-03 00:00:00 Outpatient SAGLIME_JOH N [facility] [id number] [facility] 2022-05-10 00:00:00 2022-05-10 00:00:00 Santana Amador PSYD: [address] [place] [address] , Ph. [phone]--2007 [facility] [place] [facility] [id number] [facility] 2022-03-26 00:00:00 2022-03-26 00:00:00 Outpatient SAGLIME_JOH N [facility] [id number] [facility] 2022-03-26 00:00:00 2022-03-26 00:00:00 Outpatient SAGLIME_JOH N [facility] [id number] [facility] 2022-03-26 00:00:00 2022-03-26 00:00:00 Outpatient SAGLIME_JOH N [facility] [id number] [facility] 2022-03-26 00:00:00 2022-03-26 00:00:00 Kiel Rodriguez MD: [address] [place] [address] , Ph. [phone]--[phone] [facility] [id number] [facility] 2022-02-27 00:00:00 2022-02-27 00:00:00 Outpatient SAGLIME_JOH N [facility] [id number] [facility] 2022-02-27 00:00:00 2022-02-27 00:00:00 Santana Amador PSYD: [address] [address] , Ph. [phone]--2007 [facility] [id number] [facility] 2022-02-25 00:00:00 2022-02-25 00:00:00 Outpatient SAGLIME_JOH N [facility] [id number] [facility] 2022-02-05 00:00:00 2022-02-05 00:00:00 Outpatient SAGLIME_JOH N [facility] [id number] [facility] 2022-02-05 00:00:00 2022-02-05 00:00:00 Santana Amador, PSYD: [address] [place] [address] , Ph. [phone]--[phone] [facility] [id number] [facility] 2022-01-22 00:00:00 2022-01-22 00:00:00 Outpatient SAGLIME_JOH N [facility] [id number] [facility] 2022-01-21 00:00:00 2022-01-21 00:00:00 Outpatient SAGLIME_JOH N [facility] [id number] [facility] 2022-01-21 00:00:00 2022-01-21 00:00:00 SHAHRIAR JohnsYD: [address] [place] [address] , Ph. [phone]--[address] [facility] [id number] [facility] 2022-01-15 00:00:00 2022-01-15 00:00:00 Outpatient SAGLIME_JOH N [facility] [id number] [facility] 2022-01-15 00:00:00 2022-01-15 00:00:00 Santana Amador, PSYD: [address] [place] [address] , Ph. [phone]--[phone] [facility] [place] [facility] [id number] [facility] 2022-01-14 00:00:00 2022-01-14 00:00:00 Outpatient LAYO Beckett [facility] [id number] [facility] 2022-01-08 00:00:00 2022-01-08 00:00:00 Outpatient SOLIS_CEM _MIKHAIL [facility] [id number] [facility] 2022-01-07 00:00:00 2022-01-07 00:00:00 Outpatient SOLIS_SMITH _MIKHAIL [facility] [id number] [facility] 2022-01-07 00:00:00 2022-01-07 00:00:00 SHAHRIAR JohnsYD: [address] [place] [address] , Ph. [phone] --2007 [facility] [id number] [facility] 2022-01-03 00:00:00 2022-01-03 00:00:00 Outpatient SOLIS_CEM _MIKHAIL [facility] [id number] [facility] 2022-01-03 00:00:00 2022-01-03 00:00:00 Santana Amador, SHAHRIARYD: [address] [place] [address] , Ph. [phone]--[phone] [facility] [place] [facility] [id number] [facility] 2021-12-25 00:00:00 2021-12-25 00:00:00 Outpatient SOLIS_SMITH _LILLIAN [facility] [id number] [facility] 2021-12-25 00:00:00 2021-12-25 00:00:00 Kiel Rodriguez MD: [address] [place] [address] , Ph. [phone] --[phone] [facility] [id number] [facility] 2021-12-19 00:00:00 2021-12-19 00:00:00 Outpatient SOLIS_SMITH _LILLIAN [facility] [id number] [facility] 2021-12-18 00:00:00 2021-12-18 00:00:00 Outpatient SOLIS_SMITH _LILLIAN [facility] [id number] [facility] 2021-12-18 00:00:00 2021-12-18 00:00:00 Santana Amador PSYD: [address] [place] [address] , Ph. [phone]--[phone] [facility] [id number] [facility] 2021-11-28 00:00:00 2021-11-28 00:00:00 Outpatient SOLIS_SMITH _LILLIAN [facility] [id number] [facility] 2021-11-27 00:00:00 2021-11-27 00:00:00 Outpatient SOLIS_SMITH _LILLIAN [facility] [id number] [facility] 2021-11-27 00:00:00 2021-11-27 00:00:00 Santana Amador PSYD: [address] [place] [address] , Ph. [phone]--[phone] [facility] [place] [facility] [id number] [facility] 2021-11-23 00:00:00 2021-11-23 00:00:00 Outpatient SOLIS_SMITH _LILLIAN [facility] [id number] [facility] 2021-11-23 00:00:00 2021-11-23 00:00:00 SHAHRIAR JohnsYD: [address] [place] [address] , Ph. [phone]--[phone] [facility] [id number] [facility] 2021-11-01 00:00:00 2021-11-01 00:00:00 Outpatient SOLIS_SMITH _LILLIAN [facility] [id number] [facility] 2021-11-01 00:00:00 2021-11-01 00:00:00 Kiel Rodriguez MD: [address] [place] [address] , Ph. [phone]--2007 [facility] [place] [facility] [id number] [facility] 2021-10-11 12:38:00 2021-10-11 12:38:00 Outpatient SOLIS_SMITH _LILLIAN [facility] [id number] [facility] 2021-10-08 03:44:00 2021-10-08 03:44:00 Outpatient SOLIS_SMITH _LILLIAN [facility] [id number] [facility] 2021-10-08 00:00:00 2021-10-08 00:00:00 Santana Amador PSYD: [address] [place] [address] , Ph. [phone]--2007 [facility] [place] [facility] [id number] [facility] 2021-09-25 03:14:00 2021-09-25 03:14:00 Outpatient ANDRE_CEM RIVERA [facility] [id number] [facility] 2021-09-20 03:23:00 2021-09-20 03:23:00 Outpatient SOLROMAIN RIVERA [facility] [id number] [facility] 2021-09-20 00:00:00 2021-09-20 00:00:00 Santana Amador, PSYD: [address] [place] [address] , Ph. [phone]--[phone] [facility] [id number] [facility] 2021-09-07 12:59:00 2021-09-07 12:59:00 Outpatient AGUSTÍN RIVERA [facility] [id number] [facility] 2021-09-07 12:59:00 2021-09-07 12:59:00 Outpatient SOLSANDEEP_CEM RIVERA [facility] [id number] [facility] 2021-09-07 12:59:00 2021-09-07 12:59:00 Outpatient SOLSANDEEP_CEM RIVERA [facility] [id number] [facility]
[2023-08-21] MEDS ORDERED: NA CHLORIDE 0.9% 1,000 ML ONE (11:38)
[2023-08-21] MEDS ORDERED: ONDANSETRON 4 MG/2 ML VIAL ONE (11:38)
[2023-08-21] MEDS ORDERED: MORPHINE 4 MG/ML SYR ONE (11:38)
[2023-08-21 12:00] LABS: Absolute Eosinophils 0.1 K/uL (0-0.5); Absolute Lymphocytes (CBC) 1.3 K/uL (0.7-4.9); Absolute Monocytes 0.6 K/uL (0.1-1.3); Absolute Neutrophil 6.1 K/uL (1.8-8.0); Basophils % 0.5 % (0-1.3); Eosinophils % 0.8 % (0-4.4); Hematocrit 50.7 % (39.6-49.0); Hemoglobin 16.9 g/dL (13.6-17.9); Lymphocytes % 16.3 % (15.3-44.8); MCH 30.8 pg (27.0-35.0); MCHC 33.3 g/dL (32.0-36.0); MCV 92.5 fL (80-100); MPV 9.4 fL (7.6-11.3); Monocytes % 7.9 % (3.3-12.3); Neutrophils % 74.5 % (41.7-73.7); Platelets 247 thou/uL (152-406); RBC Red Blood Cell Count 5.49 M/uL (4.33-5.43); Red Cell Distribution Width 13.6 % (12.1-15.2)
[2023-08-21 12:02] LABS: Specific Gravity 1.028 (1.005-1.030); Sqamous Epithelial <5 /HPF (None Seen); Urine Bacteria None Seen /HPF (<20); Urine Bilirubin NEGATIVE (Negative); Urine Blood Negative (Negative); Urine Clarity Clear (Clear); Urine Color Light-Yellow (Yellow); Urine Culture Reflex Order NOT NEEDED; Urine Glucose 4+ (Over) (Negative); Urine Ketones TRACE (Negative); Urine Microscopic Reflex YN ORDER UMIC; Urine Mucus 3+ /HPF (None Seen); Urine Nitrite NEGATIVE (Negative); Urine Protein TRACE (Negative); Urine RBC <5 /HPF (None Seen); Urine Urobilinogen Normal (Normal); Urine WBC <5 /HPF (<5)
[2023-08-21 12:18] LABS: Albumin 3.8 g/dL (3.4-5.0); Albumin/Globulin Ratio 1.1 (1.1-1.8); Anion Gap 8.2 mEq/L (5.0-15.0); Bilirubin Direct 0.2 mg/dL (0-0.2); Bilirubin Indirect, Calculated 0.8 mg/dL (0.2-0.8); Globulin 3.4 g/dL (2.3-3.5); Magnesium 1.8 mg/dL (1.6-2.4); Potassium 4.2 mEq/L (3.5-5.1); Protein, Total 7.2 g/dL (6.4-8.2); Troponin High Sensitivity 10.4 pg/mL (<58.9)
--- NOTE | 2023-08-21 12:21 | RAD REPORT ---
EXAM DESCRIPTION: RADChest Single View08/21/2023 12:15 pm CLINICAL HISTORY: COUGH COMPARISON: Chest Single View dated 07/18/2021 TECHNIQUE: Portable AP view of the chest. FINDINGS: The lungs are clear apart from mild perihilar interstitial opacities. No pneumothorax or effusion. The cardiomediastinal contours are unremarkable. IMPRESSION: Mild perihilar interstitial opacities which may reflect mild central congestion.
--- NOTE | 2023-08-21 12:49 | RAD REPORT ---
EXAM DESCRIPTION: CTAbdomen Pelvis W Contrast - 08/21/2023 12:31 pm CLINICAL HISTORY: Abdominal pain. ABD PAIN COMPARISON: No comparisons TECHNIQUE: Biphasic CT imaging of the abdomen and pelvis was performed with 100 ml non-ionic IV cont rast. All CT scans are performed using dose optimization technique as appropriate and may include automated exposure control or mA/KV adjustment according to patient size. FINDINGS: The lung bases are clear. The liver demonstrates diffuse fatty infiltration. The spleen, pancreas, adrenal glands and left kidn ey are within normal limits. 2 mm calculus is seen right renal pelvis. No bowel obstruction, free air, free fluid or abscess. Prominent sigmoid diverticulosis coli without diverticulitis. The appendix is normal. Small fat containing bilateral inguinal hernias. No evidence of significant lymphadenopathy. No suspicious bony findings. IMPRESSION: 2 mm calculus right renal pelvis. No significant hydronephrosis. Mild fatty liver. Prominent sigmoid diverticulosis coli without diverticulitis. Small bilateral fat containing inguinal hernias.
--- NOTE | 2023-08-21 13:38 | ER ---
Nurse's Notes [facility] Name: Sharif Fregoso Age: 58 yrs Sex: Male : 1965 Arrival Date: 08/21/2023 Time: 11:10 Bed 5 Private MD: Diagnosis: Low back pain;Gross hematuria Presentation: 08/20 11:21 Chief complaint: Patient states: "I think I'm having kidney issues" for a couple ll1 months. Noticed blood in his urine and dizziness for the past three days so he came to get checked. No fevers. Coronavirus screen: Client denies travel out of the [place] in the last 14 days. At this time, the client does not indicate any symptoms associated with coronavirus-19. Ebola Screen: Patient denies travel to an Ebola-affected area in the 21 days before illness onset. Initial Sepsis Screen: Does the patient meet any 2 criteria? No. Patient's initial sepsis screen is negative. Does the patient have a suspected source of infection? No. Patient's initial sepsis screen is negative. Risk Assessment: Do you want to hurt yourself or someone else? Patient reports no desire to harm self or others. Onset of symptoms was August 19, 2023. 11:21 Method Of Arrival: Ambulatory ll1 11:21 Acuity: CATHERINE 3 ll1 Triage Assessment: 11:23 General: Appears uncomfortable, Behavior is calm, cooperative, appropriate for age. ll1 Pain: Complains of pain in back and abdomen Pain currently is 8 out of 10 on a pain scale. Quality of pain is described as aching, dull. GI: Reports bloating, cramping. : Reports pain back blood in urine. Musculoskeletal: Reports pain in back. Historical: - Allergies: 11:15 PENICILLINS; ll1 - PMHx: 11:15 Diabetes - NIDDM; ll1 - Immunization history:: Adult Immunizations up to date. - Infectious Disease History:: Denies. - Social history:: Smoking status: Patient reports the use of cigarette tobacco products, smokes one-half pack cigarettes per day. - Family history:: not pertinent. Screenin:30 [facility] ED Fall Risk Assessment (Adult) History of falling in the last 3 months, ko1 including since admission No falls in past 3 months (0 pts) Confusion or Disorientation No (0 pts) Intoxicated or Sedated No (0 pts) Impaired Gait No (0 pts) Mobility Assist Device Used No (0 pt) Altered Elimination No (0 pt) Score/Fall Risk Level 0 - 2 = Low Risk Oriented to surroundings, Maintained a safe environment, Educated pt \\T\\ family on fall prevention, incl call for assistance when getting out of bed, Assessed \\T\\ reinforced patient's understanding of fall precautions, Provided non-skid footwear, Hourly rounding (assess needs \\T\\ fall precautionary measures) done, Used ambulatory aids as needed (educated on \\T\\ assisted with). Abuse screen: Denies threats or abuse. Denies injuries from another. Nutritional screening: No deficits noted. Tuberculosis screening: No symptoms or risk factors identified. Assessment: 11:30 General: Appears in no apparent distress. uncomfortable, Behavior is calm, cooperative, ko1 appropriate for age. Pain: Complains of pain in back. Neuro: Level of Consciousness is awake, alert, obeys commands, Oriented to person, place, time, situation, Appropriate for age. Cardiovascular: No deficits noted. Respiratory: No deficits noted. GI: No deficits noted. : No deficits noted. EENT: No deficits noted. Derm: No deficits noted. Musculoskeletal: No deficits noted. Vital Signs: 11:21 BP 138 / 83; Pulse 87; Resp 16; Temp 97; Pulse Ox 95% on R/A; Weight 92.99 kg; Height 5 ll1 ft. 9 in. ; Pain 8/10; 12:50 BP 152 / 89; Pulse 65; Resp 18; Pulse Ox 98% on R/A; ld1 13:37 BP 126 / 67; Pulse 72; Resp 16; Pulse Ox 96% ; ko1 11:21 Body Mass Index 30.27 (92.99 kg, 175.26 cm) ll1 11:21 Pain Scale: Adult ll1 ED Course: 11:14 Patient arrived in ED. mg5 11:15 Arm band placed on Patient placed in an exam room, on a stretcher. ll1 11:16 Lazaro Barton MD is Attending Physician. rt 11:23 Triage completed. ll1 11:30 Patient has correct armband on for positive identification. Allergy band placed. Bed in ko1 low position. Call light in reach. Side rails up X2. Provided Education on: call light. Client placed on continuous cardiac and pulse oximetry monitoring. NIBP monitoring applied. cafeteria monitor on. Door closed. Noise minimized. Lights dimmed. Warm blanket given. Pillow given. 11:30 No provider procedures requiring assistance completed. ko1 11:33 Sana Harry, RN is Primary Nurse. ko1 11:47 Inserted saline lock: 20 gauge in right antecubital area, using aseptic technique. bp Blood collected. 12:16 XRAY Chest (1 view) In Process Unspecified. EDMS 12:32 CT Abd/Pelvis - IV Contrast Only In Process Unspecified. EDMS 13:37 Сергей Molina MD is Referral Physician. rt 13:41 IV discontinued, intact, bleeding controlled, No redness/swelling at site. Pressure ko1 dressing applied. Administered Medications: 11:47 Drug: morphine IVP or IV 4 mg IVP once over 4 mins Route: IVP; Infused Over: 4 mins; bp Site: right antecubital; 12:04 Follow up: Response: No adverse reaction ko1 11:47 Drug: Ondansetron IVP 4 mg IVP once; over 2 minutes Route: IVP; Site: right antecubital;bp 12:05 Follow up: Response: No adverse reaction ko1 11:47 Drug: NS 0.9% IV 1000 ml IV at 1 bolus Per protocol; 1000 mL bolus Route: IV; Rate: 1 bp bolus; Site: right antecubital; Medication: 11:30 VIS not applicable for this client. ko1 Outcome: 13:37 Discharge ordered by MD. rt 13:43 Discharged to home ambulatory, ko1 13:43 Condition: improved 13:43 Discharge instructions given to patient, Instructed on discharge instructions, follow up and referral plans. medication usage, Demonstrated understanding of instructions, follow-up care, medications, Prescriptions given X 1, 13:48 Patient left the ED. ko1 Signatures: Dispatcher [employer] EDMS Philip Erazo RN RN bp Lewis, Lynsay, RN RN ll1 Jennifer Pérez RN RN ld1 Sana Harry, RN RN ko1 Lazaro Barton MD MD rt Anjali Mckinley mg5
--- NOTE | 2023-08-21 13:38 | EDPHYS ---
Physician Documentation [facility] Name: Sharif Fregoso Age: 58 yrs Sex: Male : 1965 Arrival Date: 08/21/2023 Time: 11:10 Bed 5 Private MD: ED Physician Lazaro Barton HPI: 08/20 11:32 This 58 yrs old Male presents to ER via Ambulatory with complaints of Back Pain. rt 11:32 Patient presents to the ED with multiple complaints. States the symptoms been present rt for about 2 months. Patient reports a left flank pain radiates to left lower quadrant. Reports blood in his urine. Reports a cough, shortness of breath as well as a dizziness. States that the symptoms have worsened over the past 3 days. Denies other acute complaints, symptoms are moderate in severity, no other aggravating or alleviating factors.. Historical: - Allergies: 11:15 PENICILLINS; ll1 - PMHx: 11:15 Diabetes - NIDDM; ll1 - Immunization history:: Adult Immunizations up to date. - Infectious Disease History:: Denies. - Social history:: Smoking status: Patient reports the use of cigarette tobacco products, smokes one-half pack cigarettes per day. - Family history:: not pertinent. ROS: 11:32 Constitutional: Negative for fever, chills, and weight loss, MS/Extremity: Negative for rt injury and deformity, Skin: Negative for injury, rash, and discoloration, 11:32 Respiratory: Positive for cough, shortness of breath, 11:32 Abdomen/GI: Positive for abdominal pain, Negative for vomiting, 11:32 Back: Positive for flank pain, Negative for injury or acute deformity, 11:32 : Positive for hematuria, Exam: 11:32 Constitutional: This is a well developed, well nourished patient who is awake, alert, rt and in no acute distress. Head/Face: Normocephalic, atraumatic. Chest/axilla: Normal chest wall appearance and motion. Nontender with no deformity. No lesions are appreciated. Cardiovascular: Regular rate and rhythm with a normal S1 and S2. No gallops, murmurs, or rubs. Normal PMI, no JVD. No pulse deficits. Respiratory: Lungs have equal breath sounds bilaterally, clear to auscultation and percussion. No rales, rhonchi or wheezes noted. No increased work of breathing, no retractions or nasal flaring. Skin: Warm, dry with normal turgor. Normal color with no rashes, no lesions, and no evidence of cellulitis. MS/ Extremity: Pulses equal, no cyanosis. Neurovascular intact. Full, normal range of motion. Neuro: Awake and alert, GCS 15, oriented to person, place, time, and situation. Cranial nerves II-XII grossly intact. Motor strength 5/5 in all extremities. Sensory grossly intact. Cerebellar exam normal. Normal gait. 11:32 Abdomen/GI: Tenderness to the left lower, left upper quadrant, no guarding, rebound, distention, 11:32 Back: Left costovertebral angle tenderness, 11:45 ECG was reviewed by the Attending Physician. rt Vital Signs: 11:21 BP 138 / 83; Pulse 87; Resp 16; Temp 97; Pulse Ox 95% on R/A; Weight 92.99 kg; Height 5 ll1 ft. 9 in. ; Pain 8/10; 12:50 BP 152 / 89; Pulse 65; Resp 18; Pulse Ox 98% on R/A; ld1 13:37 BP 126 / 67; Pulse 72; Resp 16; Pulse Ox 96% ; ko1 11:21 Body Mass Index 30.27 (92.99 kg, 175.26 cm) ll1 11:21 Pain Scale: Adult ll1 MDM: 11:21 Patient medically screened. rt 15:56 Differential diagnosis: Pyelonephritis, kidney stone, mechanical back pain. Data rt reviewed: vital signs, nurses notes, lab test result(s), radiologic studies. Consideration of Admission/Observation Escalation of care including admission/observation considered. I considered the following discharge prescriptions or medication management in the emergency department Medications were administered in the Emergency Department. See MAR. Independent interpretation of the following test(s) in the Emergency Department CT Scan: My interpretation is No kidney stone seen on interpretation of ct images. Care significantly affected by the following chronic conditions: Diabetes. Counseling: I had a detailed discussion with the patient and/or guardian regarding the historical points, exam findings, and any diagnostic results supporting the discharge/admit diagnosis, lab results, radiology results, the need for outpatient follow up, to return to the emergency department if symptoms worsen or persist or if there are any questions or concerns that arise at home. Response to treatment: the patient's symptoms have markedly improved after treatment. 08/20 11:28 Order name: Basic Metabolic Panel; Complete Time: 12:24 rt 08/20 11:28 Order name: CBC with Diff; Complete Time: 12:24 rt 08/20 11:28 Order name: LFT's; Complete Time: 12:24 rt 08/20 11:28 Order name: Magnesium; Complete Time: 12:24 rt 08/20 11:28 Order name: NT PRO-BNP; Complete Time: 12:24 rt 08/20 11:28 Order name: Troponin HS; Complete Time: 12:24 rt 08/20 11:28 Order name: Lipase; Complete Time: 12:24 rt 08/20 11:28 Order name: Urinalysis w/ reflexes; Complete Time: 12:24 rt 08/20 11:53 Order name: Glucose, Ancillary Testing; Complete Time: 12:24 EDMS 08/20 11:28 Order name: XRAY Chest (1 view); Complete Time: 12:24 rt 08/20 11:28 Order name: CT Abd/Pelvis - IV Contrast Only; Complete Time: 12:49 rt 08/20 11:28 Order name: EKG; Complete Time: 11:28 rt 08/20 11:28 Order name: Cardiac monitoring; Complete Time: 11:34 rt 08/20 11:28 Order name: EKG - Nurse/Tech; Complete Time: 11:45 rt 08/20 11:28 Order name: IV Saline Lock; Complete Time: 11:48 rt 08/20 11:28 Order name: Labs collected and sent; Complete Time: 11:48 rt 08/20 11:28 Order name: O2 Per Protocol; Complete Time: 11:34 rt 08/20 11:28 Order name: O2 Sat Monitoring; Complete Time: 11:34 rt 08/20 11:28 Order name: Accucheck; Complete Time: 11:36 rt EC:45 Rate is 68 beats/min. Rhythm is regular, Normal Sinus Rhythm with No ectopy. QRS [place] rt is Normal. [place] interval is normal. QRS interval is normal. QT interval is normal. No Q waves. T waves are Normal. No ST changes noted. Administered Medications: 11:47 Drug: morphine IVP or IV 4 mg IVP once over 4 mins Route: IVP; Infused Over: 4 mins; bp Site: right antecubital; 12:04 Follow up: Response: No adverse reaction ko1 11:47 Drug: Ondansetron IVP 4 mg IVP once; over 2 minutes Route: IVP; Site: right antecubital;bp 12:05 Follow up: Response: No adverse reaction ko1 11:47 Drug: NS 0.9% IV 1000 ml IV at 1 bolus Per protocol; 1000 mL bolus Route: IV; Rate: 1 bp bolus; Site: right antecubital; Disposition Summary: 08/21/23 13:37 Discharge Ordered Notes: Location: Home rt Problem: new rt Symptoms: have improved rt Condition: Stable rt Diagnosis - Low back pain rt - Gross hematuria rt Followup: rt - With: Сергей Molina MD - When: 5 - 6 days - Reason: Discharge Instructions: - Discharge Summary Sheet rt - Acute Back Pain, Adult rt - Hematuria, Adult rt Forms: - Medication Reconciliation Form rt - Antibiotic Education rt - Prescription Opioid Use rt - Patient Portal Instructions rt - Leadership Thank You Letter rt Prescriptions: - acetaminophen-codeine 300-30 mg Oral tablet - take 1 tablet ORAL route every 6 hours as needed for pain; 15 tablet; Refills: rt 0, Product Selection Permitted Signatures: Dispatcher [employer] Philip Andrea RN RN bp Roland Coffey RN RN ll1 Lazaro Barton MD MD rt Sana Harry RN ko1
[2023-08-21 14:21] VITALS: BP 126/67; TEMP 97; O2SAT 96
--- NOTE | 2023-08-22 16:53 | EKG ---
Test Date: 2023-08-21 Test Time: 11:42:21 Storage Architect: Romain STEINER MEASUREMENT RESULTS: Intervals: Rate: 68 ND: 158 QRSD: 106 QT: 408 QTc: 433 [place]: P: 67 ND: 158 QRS: 63 T: 40 INTERPRETIVE STATEMENTS: Normal sinus rhythm Normal ECG Compared to ECG 07/18/2021 14:00:57 Sinus tachycardia no longer present Electronically Signed On 08-22-23 16:49:05 CDT by Moose Verdugo
== END 2023-08-21 13:48 | disposition home or self-care (01) ==
LOC: ER 11:10
DX: M54.50 Low back pain, unspecified (principal); R31.0 Gross hematuria; F17.210 Nicotine dependence, cigarettes, uncomplicated
CPT/HCPCS: 93005; 85025; 81001; 80048; 36415; 83735; 82947; 80076; 84484; 83690; 83880; 74177; 71045; 96375; 96374; 99285; Q9967; J2405; J7030